=== PATIENT | female | born 1980 ===

== ENCOUNTER 2018-07-18 23:38 | Emergency (ER) | payer SELFPAY ==
[~2018-07-18] VITALS: Ht 147.3 cm; Wt 47.3 kg
[2018-07-18 23:46] VITALS: Ht 147.3 cm; Wt 47.3 kg
[2018-07-19] MEDS ORDERED: PENICILLIN V P500 MG PO (00:23)
[2018-07-19] MEDS ORDERED: BUTALB-APAP-CA1 EACH PO (00:23)
[2018-07-19 01:20] VITALS: BP 126/90
== END 2018-07-19 01:20 | disposition home or self-care (01) ==
LOC: D.ER 23:38
DX: R51 Headache (principal); K02.9 Dental caries, unspecified; F17.200 Nicotine dependence, unspecified, uncomplicated